=== PATIENT | female | born 1995 | race African-American/Black ===

== ENCOUNTER 2023-03-04 13:28 | Emergency (ER) | payer OTHER ==
[2023-03-04 13:39] VITALS: RESP 18; BMI 25.7
[2023-03-04 15:17] LABS: BASO % 0.2 % (0-2.0); EOS % 0.7 % (0-4.5); HEMATOCRIT 42.4 % (32.4-45.2); HEMOGLOBIN 14.3 GM/dL (10.7-15.3); LYMPH % 13.8 % (8-40); MCH 29.9 pg (25.7-33.7); MCHC 33.7 g/dl (32.0-36.0); MEAN CELL VOLUME 88.7 fl (80-96); MEAN PLT VOLUME 7.9 fl (7.5-11.1); MONO % 9.5 % (3.8-10.2); NEUT % 75.8 % (42.8-82.8); PLATELET COUNT 315 10^3/uL (134-434); RBC 4.78 M/mm3 (3.60-5.2); RDW 13.3 % (11.6-15.6); WHITE BLOOD COUNT 13.3 K/mm3 (4.0-10.0)
[2023-03-04 15:36] LABS: POTASSIUM 3.5 mmol/L (3.5-5.1)
[2023-03-04 15:38] LABS: CALCIUM 8.7 mg/dL (8.5-10.1)
[2023-03-04 15:39] LABS: ALBUMIN 4.1 g/dl (3.4-5.0); BLOOD UREA NITROGEN 6.6 mg/dL (7-18)
[2023-03-04 15:42] LABS: CREATININE 0.8 mg/dL (0.55-1.3)
[2023-03-04 15:44] LABS: BILIRUBIN,TOTAL 0.6 mg/dL (0.2-1); TOT PROT 7.6 g/dl (6.4-8.2)
[2023-03-04 17:30] VITALS: BP 120/73; PULSE 82; TEMP 98.9
[2023-03-04] MEDS ORDERED: AMPICILLIN NA/SULBACTAM NA 3 GM in SODIUM CHLORIDE 100 ML IVPB ONE (17:57)
[2023-03-04] MEDS ORDERED: AMPICILLIN NA/SULBACTAM NA 3 GM VIAL ONE (17:59)
== END 2023-03-04 18:40 | disposition home or self-care (01) ==
LOC: JER 13:28
DX: K08.89 Other specified disorders of teeth and supporting structures (principal); R22.0 Localized swelling, mass and lump, head; L03.211 Cellulitis of face
CPT/HCPCS: 36415; 70487-TC; 80053; 84703; 85025; 99285-25; Q9967